=== PATIENT | male | born 1990 | race Caucasian/White ===

== ENCOUNTER 2025-01-05 00:01 | Emergency (ER) | payer MEDICAID ==
[~2025-01-05] VITALS: Ht 182.9 cm; Wt 126.8 kg
[2025-01-05 00:15] LABS: MEAN PLATELET VOLUME 7.8 FL (7.4-10.4); RED CELL DISTRIBUTION WIDTH 13.9 % (11.5-14.5)
--- NOTE | 2025-01-05 00:25 | Physician Documentation ---
History of Present Illness ~ Chief Complaint: Chest Pain Stated Complaint: CHEST PAIN Time Seen by MD: 00:24 HPI Patient presents to the emergency room with right-sided chest pain and of acute onset this evening while sleeping. No prior instances. He denies one-sided leg pain. No nausea or vomiting. No shortness of breath cough cold or congestion. Pain is exacerbated with arm movement and breathing deeply. Medication Reconciliation Allergies: Uncoded Allergies: AGAVE (Allergy, Unknown, 01/05/25) PENICILLIN (Allergy, Unknown, 01/05/25) Review of Systems ROS All review of systems negative except as per HPI Physical Exam Vital Signs: Temperature: 98.0, Heart Rate: 96, Respiratory Rate: 18, BP: 155/95, Pulse Oximetry: 97 Oxygen Flow Rate: 0 Physical Exam General: Patient is awake, alert, oriented x4 in no acute distress. Anxious Head: Normocephalic and atraumatic. Eyes: Conjunctival normal. EOMI. PERRL. ENT: Mucous membranes moist. Neck: Supple, trachea is midline. Chest: Clear to auscultation bilaterally without rales, rhonchi, or wheezes. There is no accessory muscle use or retractions. Cardiac: RRR without murmurs, gallops, or rubs. Abd: Soft, nondistended, nontender, with normoactive bowel sounds. No guarding, rebound, or rigidity. Extremities: Normal strength. Normal range of motion. No deformities or edema. No calf tenderness to palpation Progress Results/Orders Results/Orders Orders - STAR DICK MD Chest,Single View (01/05/25 00:21) Monitor (01/05/25 00:02) Saline Lock (01/05/25 00:02) Oxygen (01/05/25 00:02) Electrocardiogram (01/05/25 00:02) Hs Troponin I W Calculations (01/05/25 03:02) Completed Orders - STAR DICK MD Chest,Single View (01/05/25 00:21) Cbc/Diff (01/05/25 00:02) BMP (01/05/25 00:02) PBNP (01/05/25 00:02) Hs Troponin I W Calculations (01/05/25 00:02) Hs Troponin I W Calculations (01/05/25 02:02) Aspirin 325mg Tablet (Aspirin 325mg Tabl (01/05/25 00:45) Ibuprofen Tablet (Motrin Tablet) (01/05/25 00:45) Acetaminophen 325mg Tablet (Tylenol Tabl (01/05/25 00:45) Medications Received in ER Medications (Trade) Dose Ordered Sig/Bing Route PRN Reason Start Time Stop Time Status Last Admin Dose Admin (aspirin 325mg tablet) 1 tab ONCE ONCE PO 01/05/25 00:45 01/05/25 00:46 DC 01/05/25 00:55 1 TAB (Motrin tablet) 800 mg ONCE ONCE PO 01/05/25 00:45 01/05/25 00:46 DC 01/05/25 00:54 800 MG (Tylenol tablet) 650 mg ONCE ONCE PO 01/05/25 00:45 01/05/25 00:46 DC 01/05/25 00:56 650 MG Vital Signs 01/05/25 01/05/25 01/05/25 01/05/25 00:07 00:57 01:08 01:44 Temp 98.0 98.0 98.0 Pulse 96 92 79 Resp 18 8 16 16 B/P (MAP) 155/95 150/67 (94) 131/71 (91) Pulse Ox 97 98 99 O2 Flow Rate 0 0 0 Laboratory Tests Test 01/05/25 00:07 01/05/25 01:58 White Blood Count 11.3 H Red Blood Count 4.93 Hemoglobin 14.4 Hematocrit 41.2 L Mean Corpuscular Volume 83.6 Mean Corpuscular Hemoglobin 29.2 Mean Corpuscular Hemoglobin Concent 35.0 Red Cell Distribution Width 13.9 Platelet Count 342 Mean Platelet Volume 7.8 Neutrophils (%) (Auto) 73.1 Lymphocytes (%) (Auto) 21.4 Monocytes (%) (Auto) 4.3 Eosinophils (%) (Auto) 0.7 Basophils (%) (Auto) 0.5 Neutrophils # (Auto) 8.3 H Lymphocytes # (Auto) 2.4 Monocytes # (Auto) 0.5 Eosinophils # (Auto) 0.1 Basophils # (Auto) 0.1 CBC Comment Sodium Level 139 Potassium Level 3.9 Chloride Level 103 Carbon Dioxide Level 25.9 Anion Gap 10 Blood Urea Nitrogen 18 Creatinine 1.03 Estimated GFR/1.73 m2 82 BUN/Creatinine Ratio 17.5 Glucose Level 128 H Calcium Level 9.2 Troponin I High Sensitivity 8 5 Pro-B-Type Natriuretic Peptide 84 Albumin 4.0 Chemistry Comments Troponin I High Sens Percent Delta 37 Troponin I Hi Sens Absolute Change -3 EKG/XRAY/CT/US/VASC/MRI EKG : Additional Comment EKG interpreted by myself shows time of 006, rate 98, sinus rhythm, normal axis, no ST changes Chest X-Ray : Additional Comments Chest x-ray interpreted by myself shows no effusions, no infiltrates, no pneumothorax. Normal cardiac silhouette Medical Decision Making Findings Patient presents to the emergency room for evaluation of chest pain as per HPI differentials include but are not limited to ACS, musculoskeletal pain, aortic pathology, pulmonary embolism therefore emergent labs and imaging indicated. Troponins negative x2. Patient's pain is atypical with a heart score of 1. He is considered low cardiovascular risk. Symptoms inconsistent with aortic pathology. No hypoxia, no tachycardia and no calf tenderness to palpation and he had not feel patient requires investigation into possible pulmonary embolism. Departure Disposition: HOME / SELF CARE / HOMELESS Impression: Primary Impression: Chest wall pain Condition: Stable Discharge Instructions: Chest Wall Pain Referrals: NO PRIMARY CARE PROVIDER (PCP) Signature Scribe Signature: No scribe Attestation: The note accurately reflects work and decisions made by me.Star Dick MD 01/05/25 02:30 STAR DICK MD Jan 05, 2025 00:25
[2025-01-05 00:36] LABS: CREATININE 1.03 MG/DL (0.60-1.10); PRO BRAIN NATRIURETIC PEPTIDE 84 PG/ML (0-125); TOTAL CARBON DIOXIDE 25.9 MMOL/L (24-32); eGFR 82 ML/MIN
--- NOTE | 2025-01-05 00:40 | RADIOLOGY REPORT ---
CHEST RADIOGRAPH Indication: CP Technique: Single frontal view of the chest was obtained COMPARISON: None FINDINGS: Lines and Tubes: None Lungs: Clear Pleura: No effusion. No pneumothorax. Cardiomediastinal contours: Unremarkable Bones: Unremarkable IMPRESSION: 1. No acute disease.
[2025-01-05] MEDS: ibuprofen tablet 400 MG TABLET PO ONE (00:54)
[2025-01-05 02:39] VITALS: BP 158/94; PULSE 79; RESP 16; TEMP 98; O2SAT 100
--- NOTE | 2025-01-05 06:01 | ELECTROCARDIOGRAPH REPORT ---
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 Daniel Asher Measurements Intervals [place] Rate: 98 P: 31 [place]: 152 QRS: 48 QRSD: 81 T: 49 QT: 337 QTc: 431 Interpretive Statements Sinus rhythm Baseline wander in lead(s) V1 Electronically Signed On 01-05-2025 18:20:[address] Daniel Asher Please click the below link to view image of tracing.
== END 2025-01-05 02:41 | disposition home or self-care (01) ==
LOC: ER 00:02
DX: R07.89 Other chest pain (principal)
CPT/HCPCS: 36415; 71045; 80048; 83880; 84484; 85025; 93005; 99285

== ENCOUNTER 2025-01-08 23:07 | Emergency (ER) | payer MEDICAID ==
[~2025-01-08] VITALS: Ht 182.9 cm; Wt 149.5 kg
[2025-01-08 23:32] VITALS: TEMP 98.5
--- NOTE | 2025-01-08 23:42 | ELECTROCARDIOGRAPH REPORT ---
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 Nilay Jara Measurements Intervals [place] Rate: 81 P: 17 [place]: 137 QRS: 20 QRSD: 84 T: 40 QT: 347 QTc: 403 Interpretive Statements Sinus rhythm Baseline wander in lead(s) V3 Electronically Signed On 01-09-2025 1:31:[address] Nilay Jara Please click the below link to view image of tracing.
--- NOTE | 2025-01-08 23:45 | Physician Documentation ---
History of Present Illness ~ Chief Complaint: Allergic Reaction Stated Complaint: ALLERGIC REACTION Time Seen by MD: 01:31 OK to notify your PCP?: Yes Source: patient Mode of Arrival: POV Exam Limitations: no limitations HPI 34-year-old male presents for chest tightness and palpitations after taking a prednisone Dosepak which started on Friday. He states that earlier this week he had similar symptoms. He states it is worse with a deep breath but nontender to palpation. He is currently transitioning male to female in his currently taking multiple hormones for the past year. Asher HPI: 34 year old biological male, transgender female on hormone replacement therapy (estrogen and progesterone) presents to the emergency department presents complaining of chest palpitations. They state that since starting prednizone four days they began feeling chest tightness and palpitations as well as numbness. She states that they called a pharmacist and after describing their symptoms they were told to present to the emergency department. Additional patient complains of interrupted sleep since beginning the prednizone. Medication Reconciliation Allergies: Uncoded Allergies: AGAVE (Allergy, Unknown, 01/05/25) PENICILLIN (Allergy, Unknown, 01/05/25) Review of Systems All Other Systems at this time: Reviewed and Negative ROS As stated above in the HPI, otherwise all systems are reviewed and negative. Physical Exam Vital Signs: RN Vital Signs have been reviewed: Yes, Temperature: 98.5, Source: Temporal, Heart Rate: 80, Respiratory Rate: 20, BP: 150/78, Pulse Oximetry: 97, Weight: 149.540 Pulse Oximetry Reflects: adequate oxygenation Physical Exam General: Alert, no distress. HEENT: No injection, moist mucous membranes. Neck: Full range of motion. Respiratory: No respiratory distress, equal chest rise and fall. Chest: No accessory muscle use. Cardiovascular: Regular rate and rhythm. Gastrointestinal: Nondistended. Extremities: Normal range of motion, no deformity. Neurologic: Oriented x4. Psychiatric: Normal mood and affect. Skin: Normal color, warm and dry. ASHER exam: General: Anxious, The patient is well developed, well nourished, nontoxic appearing, Skin: [place], warm and dry with no rashes. HEENT: Head was normocephalic and atraumatic. Eyes - pupils equal, round, reactive to light and accommodation. Extraocular movements were intact. Conjunctivae were nonicteric. Ears - bilateral tympanic membranes were normal. The mouth and oropharynx were clear with moist mucous membranes. There were no pharyngeal exudates or erythema. Neck: Supple and nontender. There was no jugular venous distention, lym phadenopathy, thyromegaly or masses. Chest: Clear to auscultation bilaterally without wheezes, rales or rhonchi. No accessory muscle use. No dullness to percussion. Heart: Rate regular and rhythmic. S1, S2. No murmurs. Palpation of the chest wall was normal. No rubs or thrills. Abdomen: Soft, nontender and nondistended. Positive bowel sounds. No guarding or rebound. No hepatosplenomegaly or palpable masses. Extremities: No cyanosis, clubbing or edema. The patient moves all extremities. Pulses were equal and symmetric. Neurologic: Cranial nerves II-XII were intact. Sensation was intact to light touch throughout. Motor strength was 5/5 in all four extremities. Deep tendon reflexes were intact in both upper and lower extremities. Psychologic: The patient was oriented to person, place and time. The patient demonstrated appropriate judgement and insight. Progress Results/Orders Reviewed/noted all lab results: Yes Results/Orders Orders - DANIEL ASHER MD Chest,Single View (01/08/25 23:46) Monitor (01/08/25 23:40) Saline Lock (01/08/25 23:40) Oxygen (01/08/25 23:40) Electrocardiogram (01/08/25 23:40) Completed Orders - DANIEL ASHER MD Chest,Single View (01/08/25 23:46) Cbc/Diff (01/08/25 23:40) BMP (01/08/25 23:40) PBNP (01/08/25 23:40) Electrocardiogram (01/08/25 23:40) Hs Troponin I W Calculations (01/08/25 23:40) Hs Troponin I W Calculations (01/09/25 01:40) Diazepam Tablet (Valium Tablet) (01/09/25 01:50) Diphenhydramine Capsule (Benadryl Capsul (01/09/25 01:50) Medications Received in ER Medications (Trade) Dose Ordered Sig/Bing Route PRN Reason Start Time Stop Time Status Last Admin Dose Admin (Valium tablet) 10 mg ONCE ONCE PO 01/09/25 01:50 01/09/25 01:51 DC 01/09/25 01:58 10 MG (Benadryl capsule) 25 mg ONCE ONCE PO 01/09/25 01:50 01/09/25 01:51 DC 01/09/25 01:58 25 MG Vital Signs 01/08/25 01/09/25 01/09/25 01/09/25 23:32 00:39 01:58 02:09 Temp 98.5 Pulse 80 72 71 Resp 20 14 18 12 B/P (MAP) 150/78 133/82 (99) 133/82 Pulse Ox 97 99 99 Laboratory Tests Test 01/08/25 23:33 01/09/25 01:38 White Blood Count 13.4 H Red Blood Count 5.00 Hemoglobin 14.3 Hematocrit 41.5 L Mean Corpuscular Volume 83.0 Mean Corpuscular Hemoglobin 28.7 Mean Corpuscular Hemoglobin Concent 34.5 Red Cell Distribution Width 14.1 Platelet Count 348 Mean Platelet Volume 7.6 Neutrophils (%) (Auto) 69.3 Lymphocytes (%) (Auto) 23.7 Monocytes (%) (Auto) 6.0 Eosinophils (%) (Auto) 0.6 Basophils (%) (Auto) 0.4 Neutrophils # (Auto) 9.3 H Lymphocytes # (Auto) 3.2 Monocytes # (Auto) 0.8 Eosinophils # (Auto) 0.1 Basophils # (Auto) 0.1 CBC Comment Sodium Level 136 Potassium Level 3.2 L Chloride Level 103 Carbon Dioxide Level 22.6 L Anion Gap 10 Blood Urea Nitrogen 15 Creatinine 1.07 Estimated GFR/1.73 m2 78 BUN/Creatinine Ratio 14.0 Glucose Level 115 H Calcium Level 8.8 Troponin I High Sensitivity 6 8 Pro-B-Type Natriuretic Peptide 134 H Albumin 3.9 Chemistry Comments Troponin I High Sens Percent Delta 33 Troponin I Hi Sens Absolute Change 2 Re-Evaluation Re-Evaluation : Re-Evaluation: Improved Progress Patient was seen and examined. Patient had multiple medical complaints. Lab oratory work was obtained. Patient received Valium because of high level of of anxiety as well as Benadryl to help for the reactions possibly to steroids. Patient was told to discontinue steroids as well. Laboratory work showed slight leukocytosis with a WBC of 13.4 most likely related to prednisone use not an infection. No signs of anemia or abnormality. Chemistry potassium slightly low at 3.2 CO2 22.6. Troponins negative. Patient was then discharged home. Continuous electronic device monitor interpretation shows normal sinus rhythm heart rate 80s, no ectopy, normal, my interpretation. Pulse oximetry monitor interpretation shows normal oxygenation 98% room air, normal, my interpretation. 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 Daniel Asher Measurements Intervals [place] Rate: 81 P: 17 [place]: 137 QRS: 20 QRSD: 84 T: 40 QT: 347 QTc: 403 Interpretive Statements Sinus rhythm Baseline wander in lead(s) V3 Electronically Signed On 01-09-2025 1:31:[address] Daniel Asher Please click the below link to view image of tracing. EKG Date and Time:01/08/252320 Electronically Signed by: DANIEL ASHER MD Date and Time: 01/09/25 0131 Chest X-Ray : Additional Comments CHEST RADIOGRAPH Indication: CP Technique: Single frontal view of the chest was obtained COMPARISON: DI CHEST,SINGLE VIEW on DOS: 01/05/25 FINDINGS: Lines and Tubes: None Lungs: Clear Pleura: No effusion. No pneumothorax. Cardiomediastinal contours: Unremarkable Bones: Unremarkable IMPRESSION: 1. No acute disease. Electronically Signed by:MÓNICA REYNAGA MD Date & Time: 01/08/25 6491 Medical Decision Making Differential Dx:Considerations: Include: Anaphylaxis, Angioedema, Bronchospasm, Contact dermatitis, Drug reaction, Hypotension, Latex allergy, Renal failure, Respiratory failure, Shock, Urticaria, Other Departure Time of Disposition: 01:55 Disposition: 01 HOME / SELF CARE / HOMELESS Impression: Primary Impression: Anxiety Additional Impression: Possible medicine reaction Condition: Stable Discharge Instructions: Generalized Anxiety Disorder, Adult Additional Instructions: Stop use of prednizone. Referrals: NO PRIMARY CARE PROVIDER (PCP) Education Educated regarding: diagnosis, treatment, prognosis Additional Comment Medical Screen Exam This patient recieved a medical screening examination. After reviewing the individual's medical complaints with presenting symptoms and performing an appropriate physical examination, it was determined that no immediate life- threatening emergency medical condition is present. This individual is also not a women having contractions. Signature Scribe Signature: Scribed for Daniel Asher MD by Lorenza Matt . 01/09/25 01:56 Attestation: The note accurately reflects work and decisions made by me.Daniel Asher MD 01/09/25 08:02 GLO REYES [facility] Jan 08, 2025 23:45 LORENZA BHAT Jan 09, 2025 01:56 DANIEL ASHER MD Jan 09, 2025 08:02
[2025-01-08 23:51] LABS: MEAN PLATELET VOLUME 7.6 FL (7.4-10.4); RED CELL DISTRIBUTION WIDTH 14.1 % (11.5-14.5)
--- NOTE | 2025-01-09 00:01 | RADIOLOGY REPORT ---
CHEST RADIOGRAPH Indication: CP Technique: Single frontal view of the chest was obtained COMPARISON: DI CHEST,SINGLE VIEW on DOS: 01/05/25 FINDINGS: Lines and Tubes: None Lungs: Clear Pleura: No effusion. No pneumothorax. Cardiomediastinal contours: Unremarkable Bones: Unremarkable IMPRESSION: 1. No acute disease.
[2025-01-09 00:06] LABS: CREATININE 1.07 MG/DL (0.60-1.10); PRO BRAIN NATRIURETIC PEPTIDE 134 PG/ML (0-125); TOTAL CARBON DIOXIDE 22.6 MMOL/L (24-32); eCRCL 105 ML/MIN; eGFR 78 ML/MIN
[2025-01-09 02:09] VITALS: BP 133/82; PULSE 71; RESP 12; O2SAT 99
== END 2025-01-09 02:12 | disposition home or self-care (01) ==
LOC: ER 23:08
DX: F41.9 Anxiety disorder, unspecified (principal); R00.2 Palpitations; R07.89 Other chest pain; R20.0 Anesthesia of skin; R06.02 Shortness of breath
CPT/HCPCS: 36415; 71045; 80048; 83880; 84484; 85025; 93005; 99285; Q0163